=== PATIENT | male | born 1975 | race Caucasian/White ===

== ENCOUNTER 2017-05-22 11:51 | Emergency (ER) | payer OTHER ==
[2017-05-22 12:11] VITALS: RESP 18; TEMP 98
[2017-05-22] MEDS ORDERED: Lidocaine 5% Patch TD STA (12:20)
[2017-05-22] MEDS ORDERED: Lidocaine 5% Patch TD ONE (12:31)
--- NOTE | 2017-05-22 12:55 | C.PDOC ---
History Of Present Illness 41 y/o male c/o pain to the lower back and right side of the neck for the past few days. Patient notes that he was playing in the park with his children a few days ago and now began to have pain. Patient took one Advil before presenting to the ER. Denies weakness, numbness, or urinary symptoms. No direct trauma. Time Seen by Provider: 05/22/17 12:35 Chief Complaint (Nursing): Back Pain History Per: Patient History/Exam Limitations: no limitations Onset/Duration Of Symptoms: Days Current Symptoms Are (Timing): Still Present Quality Of Discomfort: "Pain" Severity: Mild Exacerbating Factor(s): Movement Past Medical History Reviewed: Historical Data, Nursing Documentation, Vital Signs Vital Signs: Last Vital Signs Temp 98 F 05/22/17 12:11 Pulse 76 05/22/17 14:13 Resp 18 05/22/17 14:13 BP 115/82 05/22/17 14:13 Pulse Ox 97 05/22/17 14:13 - Medical History PMH: Mitral Valve Prolapse Denies: Chronic Kidney Disease Surgical History: CABG (Mitral Valve replacement) Family History: States: Unknown Family Hx - Social History Hx Alcohol Use: No Hx Substance Use: No - Immunization History Hx Tetanus Toxoid Vaccination: No Hx Influenza Vaccination: No Hx Pneumococcal Vaccination: No Review Of Systems Gastrointestinal: Negative for: Abdominal Pain Genitourinary: Negative for: Dysuria, Frequency, Incontinence Musculoskeletal: Positive for: Neck Pain (right neck), Back Pain Neurological: Negative for: Weakness, Numbness Physical Exam - Physical Exam Appears: Non-toxic, No Acute Distress Skin: Warm, Dry Head: Atraumatic, Normacephalic Oral Mucosa: Moist Chest: Symmetrical Cardiovascular: Rhythm Regular, No Murmur Respiratory: Normal Breath Sounds, No Rales, No Rhonchi, No Wheezing Gastrointestinal/Abdominal: Soft, No Tenderness Back: No Vertebral Tenderness, Muscle Spasm (Bilateral LS spine and Cervical spine), No Straight Leg Raising Extremity: Normal ROM (x4) Neurological/Psych: Oriented x3, Normal Motor, Normal Sensation Gait: Steady ED Course And Treatment O2 Sat by Pulse Oximetry: 98 Pulse Ox Interpretation: Normal - Other Rad XRAY LS spine X-Ray: Interpreted by Me, Viewed By Me Interpretation: muscle spasm noted, no bony fractures or dislocations found XRAY Cervical spine X-Ray: Interpreted by Me, Viewed By Me Interpretation: muscle spasm noted, no bony fractures or dislocations found Progress Note: Plans: XRAY LS spine, XRAY Cervical spine, Lidoderm, Toradol, Valium. On reassessment, patient is resting comfortably, with improvement of back pain. Patient remains afebrile, with no bony tenderness, extremity numbness or weakness, or abdominal pain. Patient is ambulatory in the emergency department with no signs of discomfort. Patient was advised to follow up with physician/clinic in 1-2 days. Reassessment Condition: Improved (no neuro deficit, stable to be d/c) Disposition - Disposition Referrals: Sagar Asencio MD [Medical Doctor] - Disposition: HOME/ ROUTINE Disposition Time: 14:03 Condition: STABLE Additional Instructions: Follow up with PMD within 1-2 days. Return to ED if feel worse. Prescriptions: Lidocaine 5% [Lidoderm] 1 patch TP DAILY #30 patch Ibuprofen [Motrin Tab] 600 mg PO Q8 #30 tab diaZEpam [Valium] 2 mg PO TID #15 tab Instructions: Back Pain (ED) Forms: [facility] ([place] Citizen) - Clinical Impression Clinical Impression: Back pain - Scribe Statement The provider has reviewed the documentation as recorded by the Scribe Lila jin All medical record entries made by the Scribe were at my direction and personally dictated by me. I have reviewed the chart and agree that the record accurately reflects my personal performance of the history, physical exam, medical decision making, and the department course for this patient. I have also personally directed, reviewed, and agree with the discharge instructions and disposition.
--- NOTE | 2017-05-22 13:37 | RAD ---
PROCEDURE: Cervical spine dated 05/22/2017 AP lateral open-mouth and extended chilel views of the cervical spine performed HISTORY: Pain. COMPARISON: None. FINDINGS: BONES: Note that the odontoid is incompletely visualized in the open-mouth projection due to obscuration by overlying occiput though there is partially visible and extended chilel view. . No acute compression fractures nor retropulsed fragments so far as can be seen within limitation of the exam. . Vertebral bodies exhibit normal stature. There is straightening of the normal cervical lordosis. Vertebral bodies otherwise exhibit normal alignment. Facets normally aligned. DISC SPACES: Mild multilevel degenerative spondylosis. SOFT TISSUES: Normal. No prevertebral soft tissue swelling. OTHER FINDINGS: Sternotomy wires. Cyst few metallic surgical clips are seen overlying the upper mediastinum IMPRESSION: No acute fractures so far as can be seen within limitation of the study. . Minor multilevel degenerative spondylosis.
--- NOTE | 2017-05-22 13:39 | RAD ---
PROCEDURE: Radiographs of the Lumbar Spine. HISTORY: pain COMPARISON: No prior. FINDINGS: BONES: No acute compression fractures. Minor chronic appearing anterior stature loss of the T11, T12 and to a lesser degree L1 segments. DISC SPACES: Disc space heights relatively maintained. Facet joints are minimally overgrown at the L5-S1 through the L3-L4 levels in decreasing order of severity OTHER FINDINGS: None. IMPRESSION: No acute fractures however there are chronic anterior stature loss changes of T11, T12 and to a lesser degree L1 segments. Very minor facet arthropathy.
[2017-05-22 14:14] VITALS: BP 115/82; PULSE 76
[2017-05-22 15:28] VITALS: O2SAT 98
== END 2017-05-22 14:14 | disposition home or self-care (01) ==
LOC: C.ER 11:51
DX: M54.9 Dorsalgia, unspecified (principal)
CPT/HCPCS: 72040; 72100; 96372; 99283; J1885